=== PATIENT | female | born 1965 | race Caucasian/White ===

== ENCOUNTER → 2023-07-03 13:35 | Outpatient (REF) | payer OTHER, SELFPAY ==
--- NOTE | 2023-07-03 14:50 | CARDSERVDEF ---
Echocardiogram with Definity completed after protocol screening completed. Allergies verified.
Patent IV site: _Rt hand____
IV site flushed with 0.9% NaCl pre and post administration.
Diluted bolus method utilized to enhance visualization of ventricular rivas.
Total volume given: ___3.0_ mL
Patient tolerated all procedures well without complications.
INT placed Rt hand.. Definity given and INT removed by Radha technician chemical cleaning.
== END ==
LOC: RCS 13:35
PROVIDERS: ATTENDING PHYSICIAN Nuclear Medicine Nuclear Cardiology; FAMILY PHYSICIAN Family Medicine
DX: I42.9 Cardiomyopathy, unspecified (principal); I48.0 Paroxysmal atrial fibrillation; I50.22 Chronic systolic (congestive) heart failure
CPT/HCPCS: 93307; Q9957

== ENCOUNTER 2023-12-22 07:13 | Emergency (ER) | payer OTHER, SELFPAY ==
[2023-12-22 07:25] VITALS: BP 135/94; BMI 55.1
--- NOTE | 2023-12-22 07:29 | ED.GENMED ---
History of Present Illness
General
Chief Complaint: Abdominal Pain
Source: patient and spouse
Time Seen by Provider: 12/22/23 07:18
History of Present Illness
History of Present Illness:
58-year-old female with past medical history of atrial fibrillation, CHF, hypertension, hvt-iudrjta-yqkvkialb diabetes presenting to the emergency department for evaluation of abdominal pain that started this past Thursday described to be constant,
gradually worsening, nonradiating and mainly located around the central and right side of the abdomen and accompanied with nausea and diarrhea. Patient denies any vomiting but states she continuously feels like she is going to. Of note, patient
was started on Zepbound for weight loss on Thursday, received 1 dose at 2-1/2 mg, had never had this medication before. Patient notes she has not been able to eat or drink anything since yesterday. She denies any fevers, chills, rigors, chest pain,
shortness of breath or any other concerns. No known sick contacts. Surgical history was noted for previous cholecystectomy
Past History
Past History
ED Past Medical History: Arrthythmia (Atrial fibrillation), CHF, GERD, HTN, NIDDM and Other (Morbid obesity)
ED Past Surgical History: Cholecystectomy, , Gynecological (Tubal ligation) and Tonsilectomy
Social History
Tobacco: Non-smoker
Alcohol: None
Drug: None
Personal:
Living: with family
Employment: Employed
Family History
Family History: Other (Noncontributory)
Review of Systems
Review of Systems
All Other Systems: ROS reviewed and negative except as documented in HPI and ROS
Phy Exam
Physical Exam
Physical Exam:
GENERAL: Alert , appears very uncomfortable, tearful
EYE: clear conjunctiva b/l
HEAD: NCAT
ENT: o/p clr, mmm.
CARDIAC: borderline tachycardic rate and rhythm
LUNGS: Clear breath sounds bilaterally, no acute respiratory distress, no wheezes/rales/rhonchi
ABDOMEN: Somewhat distended and firm, diffusely tender, no r/g, no cvat
NEUROLOGICAL: Alert and oriented
SKIN: Warm and dry, skin intact.
MUSCULOSKELETAL: Trace ankle edema bilateral, well perfused.
PSYCH: Normal and appropriate interaction.
Scores
Heart Failure Risk
Heart Failure Risk Score: Not Applicable
Heart Score for Chest Pain Patients
STEMI patient?: Not applicable
Withdrawal Assessment of Alcohol
Withdrawal Assessment Completed?: Not applicable
Course
Orders/Labs/Results
Orders:
Orders
12/22/23 07:29
CT Abd/pelvis W Iv Cont Urgent
Comment:
Reason For Exam: generalized abd pain, s/p ayse
0.9% Sodium Chloride 1000 ml [Nss] 1,000 ml IV BOLUS
Morphine Sulfate 4 mg IV NOW STA
Ondansetron Injectable [Zofran] 4 mg IV NOW STA
12/22/23 07:33
Complete Blood Count/With Diff Urgent
Comprehensive Metabolic Panel Urgent
Lipase Urgent
12/22/23 08:30
HYDROmorphone [Dilaudid] 0.5 mg IV NOW STA
Ondansetron Injectable [Zofran] 4 mg IV NOW STA
Abnormal Lab Results
12/22/23
07:33
WBC 13.0 H 10^3/uL
(4.8-10.8)
RBC 5.77 H 10^6/uL
(4.20-5.40)
MCV 77.8 L fL
(81.0-99.0)
MCH 26.5 L pg
(27.0-31.0)
RDW 18.2 H %
(11.5-14.5)
Abs Immat Gran (auto) 0.1 H 10^3/uL
(0-0.05)
Absolute Neuts (auto) 10.5 H 10^3/uL
(1.4-6.5)
Immature Gran % 0.6 H %
(0-0.5)
Neutrophils % 80.6 H %
(42.2-75.2)
Lymphocytes % 11.9 L %
(20.5-51.1)
Carbon Dioxide 17 L mmol/L
(22-30)
BUN 37 H mg/dl
(7-17)
Creatinine 1.4 H mg/dL
(0.6-1.0)
Glucose 135 H mg/dl
(70-99)
12/22/23 07:33
12/22/23 07:33
Vital Signs
Initial and Last Documented VS:
Initial Vital Signs
Temp Pulse Resp Pulse Ox
98.2 F 93 20 99
12/22/23 07:14 12/22/23 07:14 12/22/23 07:14 12/22/23 07:14
Last Documented Vital Signs
Temp Pulse Resp BP Pulse Ox
98.2 F 101 18 110/77 96
12/22/23 07:14 12/22/23 10:06 12/22/23 10:06 12/22/23 09:15 12/22/23 10:06
MDM/Problems Addressed
Differential Diagnosis Includes:
Medication side effects, appendicitis, GERD, gastritis, pancreatitis
MDM/Problems Addressed:
58-year-old female presenting to the emergency department for evaluation of GI upset and abdominal pain since Thursday, recently started on weight loss medication the day prior. Unable to eat or drink over the last 12 to 24 hours. Patient is quite
uncomfortable on exam and has diffusely tender abdomen. Will treat symptoms with morphine, Zofran and fluids. Will obtain CT given patient's degree of pain to rule out any emergent processes or surgical processes. Disposition pending
Chronic conditions affecting care: DM
*Radiology
Radiology exam reviewed: radiology read reviewed
*Pulse Oximetry
Patient hypoxic: no
*Critical Care Note
Total Time (30-74mins, 75-104mins- exclusive of procedures): Not Applicable
Data Reviewed
Review of Other/Old Records Reveals: Labs and Records
Source: patient and spouse
Comment
Comment:
Patient with minor improvement of symptoms following morphine and zofran. Additional 0.5mg dilaudid IV and 4mg zofran IV ordered. Pending CT results.
Labs reveal WBC 13, CO2 17, and a mild REMY which is likely 2/2 dehydration/poor PO intake
Patient Management
Discussion with other providers: PCP
Escalation/DeEscalation of care consider admission/obs:
Patients CT without any acute pathologies. She is feeling better follow meds and was able to tolerate PO. Patient would like to go home. Discussed BRAT diet. I contacted patients PCP office and they state to have the patient call them and they will
ensure follow up this week. Patient aware of return precautions
ED Attending Note
-
Portions of this chart may have been created with voice recognition software.� Occasional wrong word or��sound alike� substitutions may have occurred due to the inherent limitations of voice recognition software.
Discharge Plan
Departure
Patient Disposition: Home (Routine Discharge)
Date of Disposition: 12/22/23
Time of Disposition: 10:04
Patient with high blood pressure during this ER visit?: No
Discharge Problem:
Abdominal pain, REMY (acute kidney injury), Medication side effect
Instructions: Abdominal Pain
Prescriptions:
New
ondansetron 4 mg tablet,disintegrating
4 mg PO TIDPRN PRN (Reason: nausea/vomiting) Qty: 10 0RF
No Action
atorvastatin 40 MG tablet
40 mg PO QPM Qty: 30 0RF
spironolactone 25 MG tablet
25 mg PO DAILY Qty: 30 0RF
potassium chloride [Klor-Con M20] 20 MEQ tablet,ER particles/crystals
40 meq PO DAILY Qty: 60 0RF
magnesium oxide 500 MG tablet
500 mg PO DAILY 0RF
lisinopril 2.5 MG tablet
2.5 mg PO DAILY Qty: 30 0RF
cholecalciferol (vitamin D3) 2,000 UNITS tablet
2,000 units PO DAILY 0RF
furosemide [Lasix] 40 MG tablet
40 mg PO BID Qty: 60 0RF
metoprolol succinate 25 MG tablet extended release 24 hr
100 mg PO BID Qty: 240 0RF
warfarin [Jantoven] 4 MG tablet
6 mg PO QPM Qty: 0 0RF
ondansetron 4 mg tablet,disintegrating
4 mg PO QID PRN (Reason: nausea and vomiting) Qty: 20 0RF
Referrals:
Frankie Headley DO [Family Provider] -
Interventions
Interventions:
*Risk Screen - Suicide Last Done: 12/22/23 07:47
*General Assessment Last Done: 12/22/23 07:47
*Neglect/Abuse Screening Last Done: 12/22/23 07:47
*Nursing Disposition Last Done: 12/22/23 10:17
DB-Gsjeup-Dijmxbtsgk Assessment Last Done: 12/22/23 07:48
Discharge Date and Time
Discharge Date/Time: 12/22/23 10:18
Print Language: SAMMARINESE
[2023-12-22] MEDS: NSS 1000 IV (07:36)
[2023-12-22] MEDS: ZOFRAN 4 MG IV ×2 (07:38→09:00)
[2023-12-22 07:41] LABS: % Basophils 0.5 % (0-2); % Eosinophils 1.5 % (0-6); % Immature Granulocytes 0.6 % (0-0.5); % Lymphocytes 11.9 % (20.5-51.1); % Monocytes 4.9 % (1.7-9.3); % Neutrophils 80.6 % (42.2-75.2); Absolute Basophils 0.1 10^3/uL (0-0.2); Absolute Eosinophils 0.2 10^3/uL (0-0.7); Absolute Immature Granulocytes 0.1 10^3/uL (0-0.05); Absolute Lymphocytes 1.6 10^3/uL (1.2-3.4); Absolute Monocytes 0.6 10^3/uL (0.1-0.6); Absolute Neutrophils 10.5 10^3/uL (1.4-6.5); Hematocrit 44.9 % (37.0-47.0); Hemoglobin 15.3 g/dL (12.0-16.0); Mean Corp Hgb Conc. 34.1 g/dL (33.0-37.0); Mean Corpuscular Hgb 26.5 pg (27.0-31.0); Mean Corpuscular Volume 77.8 fL (81.0-99.0); Mean Platelet Volume 9.6 fL (7.4-10.4); Nucleated Red Blood Cells % 0 %; Platelet Count 315 10^3/uL (130-400); Red Blood Cell Count 5.77 10^6/uL (4.20-5.40); Red Cell Dist. Width 18.2 % (11.5-14.5)
[2023-12-22] MEDS: MORPHINE SULFATE 4 MG IV (07:42)
[2023-12-22 08:00] VITALS: BP 128/54
[2023-12-22 08:03] LABS: ALT (SGPT) 27 U/L (0-35); AST (SGOT) 22 U/L (14-36); Albumin 4.6 g/dl (3.5-5.0); Alkaline Phosphatase 99 U/L (38-126); Blood Urea Nitrogen 37 mg/dl (7-17); Calcium 9.7 mg/dl (8.4-10.2); Carbon Dioxide 17 mmol/L (22-30); Chloride 103 mmol/L (98-107); Estimated Creatinine Clearance 70 ml/min; Glucose 135 mg/dl (70-99); Lipase 62 U/L (23-300); Potassium 4.9 mmol/L (3.5-5.1); Sodium 135 mmol/L (135-145); eGFR 43.07
[2023-12-22] MEDS: DILAUDID 0.5 MG IV (09:00)
[2023-12-22 09:15] VITALS: BP 110/77
--- NOTE | 2023-12-22 09:40 | EDRN ---
0913 - pts oxygen saturation accidentally charted at 86% instead of 96%
--- NOTE | 2023-12-22 10:15 | EDRN ---
this SENIOR SALES DIRECTOR brought a wheelchair to the pts bedside and offered assistance getting the pt dressed and into the pts husbands car. the pt declined all help. the pts present at bedside stated he did not need any help getting the pt into the car.
== END 2023-12-22 10:18 | disposition home or self-care (01) ==
LOC: EMR 07:13
PROVIDERS: Physician Assistant Medical; EMERGENCY PHYSICIAN Emergency Medicine; FAMILY PHYSICIAN Family Medicine
DX: R10.9 Unspecified abdominal pain (principal); N17.9 Acute kidney failure, unspecified; T50.905A Adverse effect of unspecified drugs, medicaments and biological substances, initial encounter; Y92.9 Unspecified place or not applicable; I48.91 Unspecified atrial fibrillation; I11.0 Hypertensive heart disease with heart failure; I50.9 Heart failure, unspecified; E11.9 Type 2 diabetes mellitus without complications; E66.01 Morbid (severe) obesity due to excess calories; K21.9 Gastro-esophageal reflux disease without esophagitis; Z90.49 Acquired absence of other specified parts of digestive tract; Z98.51 Tubal ligation status
CPT/HCPCS: 99284; 96374; 96375; 96376; 96361; 74177; 80053; 83690; 85025; Q9967

== ENCOUNTER 2024-06-20 22:00 | Emergency (ER) | payer OTHER, SELFPAY ==
[2024-06-20 22:06] VITALS: BP 137/88
[2024-06-20 22:24] LABS: % Basophils 0.6 % (0-2); % Eosinophils 1.3 % (0-6); % Immature Granulocytes 0.4 % (0-0.5); % Lymphocytes 19.1 % (20.5-51.1); % Monocytes 5.7 % (1.7-9.3); % Neutrophils 72.9 % (42.2-75.2); Absolute Basophils 0.1 10^3/uL (0-0.2); Absolute Eosinophils 0.1 10^3/uL (0-0.7); Absolute Lymphocytes 1.9 10^3/uL (1.2-3.4); Absolute Monocytes 0.6 10^3/uL (0.1-0.6); Absolute Neutrophils 7.4 10^3/uL (1.4-6.5); Hematocrit 47.4 % (37.0-47.0); Hemoglobin 15.8 g/dL (12.0-16.0); Mean Corp Hgb Conc. 33.3 g/dL (33.0-37.0); Mean Corpuscular Hgb 27.2 pg (27.0-31.0); Mean Corpuscular Volume 81.7 fL (81.0-99.0); Mean Platelet Volume 9.8 fL (7.4-10.4); Nucleated Red Blood Cells % 0 %; Platelet Count 297 10^3/uL (130-400); White Blood Cell Count 10.2 10^3/uL (4.8-10.8)
[2024-06-20 22:42] LABS: ALT (SGPT) 24 U/L (0-35); AST (SGOT) 22 U/L (14-36); Albumin 4.4 g/dl (3.5-5.0); Alkaline Phosphatase 89 U/L (38-126); Blood Urea Nitrogen 24 mg/dl (7-17); Calcium 9.5 mg/dl (8.4-10.2); Carbon Dioxide 21 mmol/L (22-30); Chloride 100 mmol/L (98-107); Glucose 214 mg/dl (70-99); Lipase 111 U/L (23-300); Potassium 4.5 mmol/L (3.5-5.1); Sodium 135 mmol/L (135-145); Total Bilirubin 0.6 mg/dl (0.2-1.3); Total Protein 7.8 g/dl (6.3-8.2)
[2024-06-21 01:09] VITALS: BP 140/86
== END 2024-06-21 01:15 | disposition left against medical advice (07) ==
LOC: EMR 22:00
PROVIDERS: Emergency Medicine; EMERGENCY PHYSICIAN Emergency Medicine
DX: R10.9 Unspecified abdominal pain (principal); Z53.21 Procedure and treatment not carried out due to patient leaving prior to being seen by health care provider
CPT/HCPCS: 80053; 83690; 85025